=== PATIENT | female | born 2000 ===

== ENCOUNTER 2021-01-15 02:20 | Emergency (ER) | payer SELFPAY ==
[2021-01-15 04:15] LABS: Bacteria,Urine 1+ /HPF (Negative); Bilirubin,Urine NEG (Negative); Blood,Urine NEG (Negative); Color,Urine Yellow (Yellow); Mucus,Urine 3+ /HPF
== END 2021-01-15 06:00 ==
LOC: ED 02:20
DX: O26.892 Other specified pregnancy related conditions, second trimester (principal); Z53.21 Procedure and treatment not carried out due to patient leaving prior to being seen by health care provider
CPT/HCPCS: 81001; 87086